=== PATIENT | male | born 1970 | race Caucasian/White ===

== ENCOUNTER 2018-05-28 11:46 | Day surgery (SDC) | payer OTHER ==
[2018-05-28] MEDS ORDERED: LIDOCAINE 4% SOLUTION 50 ML BTL (13:08)
[2018-05-28] MEDS ORDERED: FENTAnyl 50 MCG/ML VIAL ×2 (13:44)
[2018-05-28] MEDS ORDERED: MIDAZOLAM 1 MG/ML 2 ML INJ ×3 (13:44)
== END 2018-05-28 15:08 | disposition home or self-care (01) ==
LOC: GIL 11:46
DX: Z12.11 Encounter for screening for malignant neoplasm of colon (principal); D50.9 Iron deficiency anemia, unspecified; K29.70 Gastritis, unspecified, without bleeding
CPT/HCPCS: 43239; 88305